=== PATIENT | male | born 1990 | race Caucasian/White ===

== ENCOUNTER 2021-09-21 02:00 | Inpatient (IN) | payer MEDICAID, OTHER ==
[~2021-09-21] VITALS: Ht 177.8 cm; Wt 89.2 kg
[2021-09-21] MEDS ORDERED: LACO200T2 PO (02:19)
[2021-09-21] MEDS ORDERED: IBUP-1773 PO (02:19)
[2021-09-21] MEDS ORDERED: CYCL10TA25 (02:19)
[2021-09-21] MEDS ORDERED: METF-399 PO (02:19)
[2021-09-21] MEDS ORDERED: INSU100I29 SC (02:19)
[2021-09-21] MEDS ORDERED: ACHD5005 (02:19)
[2021-09-21] MEDS ORDERED: INSU100I48 SC (02:19)
[2021-09-21] MEDS ORDERED: LEVE500T6 PO (02:19)
[2021-09-21] MEDS ORDERED: ONDANSETRON 4 MG/2 ML (SDV) Z0FRAN IVP ONE (02:45)
[2021-09-21] MEDS ORDERED: NS IV 1000 ML 1,000 ML IV SCH (02:45)
[2021-09-21 02:54] LABS: BASOPHILS # (AUTO) 0.1 10^3/uL (0.0-0.1); BASOPHILS % (AUTO) 0 % (0-10); EOSINOPHILS % (AUTO) 0 % (0-10); HEMATOCRIT 47 % (40-54); HEMOGLOBIN 15.5 g/dL (13.3-17.7); LYMPHOCYTES % (AUTO) 5 % (12-44); MEAN CORPUSCULAR HEMOGLOBIN 29 pg (25-34); MEAN CORPUSCULAR HGB CONC 33 g/dL (32-36); MEAN CORPUSCULAR VOLUME 88 fL (80-99); MEAN PLATELET VOLUME 9.1 fL (9.0-12.2); MONOCYTES # (AUTO) 2.2 10^3/uL (0.0-1.0); MONOCYTES % (AUTO) 10 % (0-12); NEUTROPHILS # (AUTO) 18.6 10^3/uL (1.8-7.8); NEUTROPHILS % (AUTO) 85 % (42-75); PLATELET COUNT 363 10^3/uL (130-400)
[2021-09-21 02:59] LABS: ALBUMIN 4.8 GM/DL (3.2-4.5); CHLORIDE 103 MMOL/L (98-107); POTASSIUM 5.4 MMOL/L (3.6-5.0); SODIUM 136 MMOL/L (135-145)
[2021-09-21 03:00] LABS: CALCIUM 9.4 MG/DL (8.5-10.1)
[2021-09-21 03:01] LABS: TOTAL PROTEIN 8.7 GM/DL (6.4-8.2)
[2021-09-21 03:03] LABS: BILIRUBIN,TOTAL 0.3 MG/DL (0.1-1.0)
[2021-09-21 03:05] LABS: ALKALINE PHOSPHATASE 108 U/L (40-136); CREATININE SERUM 1.54 MG/DL (0.60-1.30); GFR ESTIMATED 62
[2021-09-21 03:06] LABS: BUN/CREATININE RATIO 12
[2021-09-21 03:08] LABS: ALANINE AMINOTRANSFERASE 23 U/L (0-55)
--- NOTE | 2021-09-21 03:31 | ED General ---
General Chief Complaint: Abdominal/GI Problems Stated Complaint: VOMITING Nursing Triage Note: BROUGHT IN BY [facility] FOR ABDOMINAL PAIN, VOMITTING, FEVER, HEADACHE, INCREASED FREQUENCY OF SEIZURES. Source of Information: Patient Exam Limitations: No Limitations History of Present Illness Date Seen by Provider: Sep 21, 2021 Time Seen by Provider: 03:00 Initial Comments Patient is a 30-year-old male, type I diabetic, history of seizure disorder who presents to the emergency room with a chief complaint of nausea, vomiting, hyperglycemia. Had a seizure earlier today. States he has seizures once every 1 to 2 months. Is on Keppra and Vimpat. Did not take his seizure medications yesterday morning because he did not feel good. Patient states over the last 48 hours he has had some congestion, nausea, decreased appetite. Did not take his insulin today because he has not been eating much. Denies any fevers or chills, mild sore throat with the vomiting. No earache. No runny nose. No known Covid positive contacts. He has his Covid vaccination primary series in spring 2020, no booster. Denies diarrhea, difficulty with urination, wounds or sores. States his last hemoglobin A1c was quite high because he has not been following a good diet. Has fluids running, had 8 of Zofran on arrival, still feels somewhat nauseated. All other review of systems reviewed and negative except as stated. Timing/Duration: 1-2 Days Severity: Moderate Associated Systoms: Headaches (Frontal headache), Loss of Appetite, Malaise, N ausea/Vomiting Allergies and Home Medications Allergies Coded Allergies: No Known Drug Allergies (Unverified , 09/21/21) Patient Home Medication List Home Medication List Reviewed: Yes Cyclobenzaprine HCl (Cyclobenzaprine HCl) 10 Mg Tablet, (Reported) Entered as Reported by: NICKI LAWLER on 09/21/21218 Last Action: New Order Hydrocodone/Acetaminophen (Hydrocodone-Acetamin 5-325 mg) 1 Each Tablet, (Reported) Entered as Reported by: NICKI LAWLER on 09/21/21218 Last Action: New Order Ibuprofen (Ibuprofen) 600 Mg Tablet, (Reported) Entered as Reported by: NICKI LAWLER on 09/21/21218 Last Action: New Order Insulin Detemir (Levemir Flextouch) 100 Unit/1 Ml Insuln.pen, (Reported) Entered as Reported by: NICKI LAWLER on 09/21/21218 Last Action: New Order Insulin Lispro (Insulin Lispro Kwikpen U-100) 100 Unit/1 Ml Insuln.pen, (Reported) Entered as Reported by: NICKI LAWLER on 09/21/21218 Last Action: New Order Lacosamide (Vimpat) 200 Mg Tablet, (Reported) Entered as Reported by: NICKI LAWLER on 09/21/21218 Last Action: New Order Levetiracetam (Levetiracetam) 500 Mg Tablet, (Reported) Entered as Reported by: NICKI LAWLER on 09/21/21218 Last Action: New Order Metformin HCl (Metformin HCl) 1,000 Mg Tablet, (Reported) Entered as Reported by: NICKI LAWLER on 09/21/21218 Last Action: New Order Review of Systems Review of Systems Constitutional: see HPI, malaise EENTM: nose congestion Respiratory: other (Congestion, mild cough) Gastrointestinal: nausea, vomiting Genitourinary: no symptoms reported Musculoskeletal: no symptoms reported Skin: no symptoms reported Psychiatric/Neurological: Headache (From) All Other Systems Reviewed Negative Unless Noted: Yes Past Celyvca-Azvbhs-Avzpmp Hx Patient Social History Tobacco Use?: No Substance use?: No Alcohol Use?: No Pt feels they are or have been: No Immunizations Up To Date First/Initial COVID19 Vaccinat: 12/04 Second COVID19 Vaccination Boby: 12/04 COVID19 Vaccine Supervisor Special Services: MODERNEliezer Past Medical History Surgery/Hospitalization HX: SEIZURES, IDDM, HEADACHES Physical Exam Vital Signs Vital Signs - First Documented 09/21/21 02:03 Temp 36.9 Pulse 117 Resp 16 B/P (MAP) 133/81 (98) Pulse Ox 98 O2 Delivery Room Air Capillary Refill : Less Than 3 Seconds Height, Weight, BMI Height: '" Weight: lbs. oz. kg; 29.00 BMI Method: General Appearance: No Apparent Distress, WD/WN Eyes: Bilateral Eye Normal Inspection, Bilateral Eye PERRL, Bilateral Eye EOMI HEENT: PERRL/EOMI, Other (Dry oral mucosa) Neck: Full Range of Motion, Normal Inspection, Non Tender, Supple Respiratory: Lungs Clear, Normal Breath Sounds, No Accessory Muscle Use, No Respiratory Distress Cardiovascular: Regular Rate, Rhythm (Tachycardic 120), Normal Peripheral Pulses Gastrointestinal: Normal Bowel Sounds, Non Tender, Soft Extremity: Normal Capillary Refill, Normal Inspection, Normal Range of Motion, Non Tender, No Calf Tenderness Neurologic/Psychiatric: Alert, Oriented x3, No Motor/Sensory Deficits, Normal Mood/Affect, welt stitcher II-XII Norm as Tested Skin: Normal Color, Warm/Dry Progress/Results/Core Measures Suspected Sepsis SIRS Temperature: Pulse: 117 Respiratory Rate: 16 Laboratory Tests 09/21/21 02:12: White Blood Count 22.0H Blood Pressure 133 /81 Mean: 98 Laboratory Tests 09/21/21 02:12: Creatinine 1.54H, Platelet Count 363, Total Bilirubin 0.3 Results/Orders Lab Results Laboratory Tests Test 09/21/21 02:12 09/21/21 02:55 09/21/21 03:32 09/21/21 04:16 Range/Units White Blood Count 22.0 H 4.3-11.0 10^3/uL Red Blood Count 5.27 4.30-5.52 10^6/uL Hemoglobin 15.5 13.3-17.7 g/dL Hematocrit 47 40-54 % Mean Corpuscular Volume 88 80-99 fL Mean Corpuscular Hemoglobin 29 25-34 pg Mean Corpuscular Hemoglobin Concent 33 32-36 g/dL Red Cell Distribution Width 12.0 10.0-14.5 % Platelet Count 363 130-400 10^3/uL Mean Platelet Volume 9.1 9.0-12.2 fL Immature Granulocyte % (Auto) 1 % Neutrophils (%) (Auto) 85 H 42-75 % Lymphocytes (%) (Auto) 5 L 12-44 % Monocytes (%) (Auto) 10 0-12 % Eosinophils (%) (Auto) 0 0-10 % Basophils (%) (Auto) 0 0-10 % Neutrophils # (Auto) 18.6 H 1.8-7.8 10^3/uL Lymphocytes # (Auto) 1.0 1.0-4.0 10^3/uL Monocytes # (Auto) 2.2 H 0.0-1.0 10^3/uL Eosinophils # (Auto) 0.0 0.0-0.3 10^3/uL Basophils # (Auto) 0.1 0.0-0.1 10^3/uL Immature Granulocyte # (Auto) 0.1 0.0-0.1 10^3/uL Neutrophils % (Manual) 64 % Lymphocytes % (Manual) 6 % Monocytes % (Manual) 11 % Band Neutrophils 19 % Blood Morphology Comment NORMAL Sodium Level 136 135-145 MMOL/L Potassium Level 5.4 H 3.6-5.0 MMOL/L Chloride Level 103 98-107 MMOL/L Carbon Dioxide Level 7 *L 21-32 MMOL/L Anion Gap 26 H 5-14 MMOL/L Blood Urea Nitrogen 19 H 7-18 MG/DL Creatinine 1.54 H 0.60-1.30 MG/DL Estimat Glomerular Filtration Rate 62 BUN/Creatinine Ratio 12 Glucose Level 448 *H 70-105 MG/DL Calcium Level 9.4 8.5-10.1 MG/DL Corrected Calcium 8.5-10.1 MG/DL Total Bilirubin 0.3 0.1-1.0 MG/DL Aspartate Amino Transf (AST/SGOT) 21 5-34 U/L Alanine Aminotransferase (ALT/SGPT) 23 0-55 U/L Alkaline Phosphatase 108 40-136 U/L Total Protein 8.7 H 6.4-8.2 GM/DL Albumin 4.8 H 3.2-4.5 GM/DL Beta-Hydroxybutyrate (Chem panel) 8.54 H 0.00-0.27 MMOL/L Urine Color YELLOW Urine Clarity CLEAR Urine pH 5.5 5-9 Urine Specific [place] >=1.030 1.016-1.022 Urine Protein 1+ H NEGATIVE Urine Glucose (UA) 2+ H NEGATIVE Urine Ketones 3+ H NEGATIVE Urine Nitrite NEGATIVE NEGATIVE Urine Bilirubin NEGATIVE NEGATIVE Urine Urobilinogen 0.2 < = 1.0 MG/DL Urine Leukocyte Esterase NEGATIVE NEGATIVE Urine RBC (Auto) 2+ H NEGATIVE Urine RBC RARE /HPF Urine WBC NONE /HPF Urine Squamous Epithelial Cells RARE /HPF Urine Crystals NONE /LPF Urine Bacteria NEGATIVE /HPF Urine Casts NONE /LPF Urine Mucus NEGATIVE /LPF Urine Culture Indicated NO Blood Gas Puncture Site LEFT RADIAL Blood Gas Patient Temperature 36.8 Arterial Blood pH 7.08 *L 7.37-7.43 Arterial Blood Partial Pressure CO2 26 L 35-45 MMHG Arterial Blood Partial Pressure O2 69 L 79-93 MMHG Arterial Blood HCO3 7 *L 23-27 MMOL/L Arterial Blood Total CO2 8.2 *L 21.0-31.0 MMOL/L Arterial Blood Oxygen Saturation 91 L 94-100 % Arterial Blood Base Excess -20.8 L -2.5-2.5 MMOL/L Ismael Test YES-POS Blood Gas Ventilator Setting NO Blood Gas Inspired Oxygen ROOM AIR Influenza Type A (RT-PCR) Not Detected Not Detecte Influenza Type B (RT-PCR) Not Detected Not Detecte SARS-CoV-2 RNA (RT-PCR) Detected H Not Detecte My Orders Orders - SKYLAR GRAY MD Ed Iv/Invasive Line Start (09/21/21 02:35) Cbc With Automated Diff (09/21/21 02:35) Comprehensive Metabolic Panel (09/21/21 02:35) Ondansetron Injection (Zofran Injectio (09/21/21 02:45) Ns Iv 1000 Ml (Sodium Chloride 0.9%) (09/21/21 02:45) Manual Differential (09/21/21 02:12) Chest 1 View, Ap/Pa Only (09/21/21 03:27) Ua Culture If Indicated (09/21/21 03:27) Beta Hydroxybutyrate (09/21/21 03:27) Arterial Blood Gas (09/21/21 03:36) Insulin (Regular) Human (Novolin R (Per (09/21/21 06:00) Insulin Regular Drip (Myxredlin 100 Unit (09/21/21 04:00) Covid 19 Inhouse Test (09/21/21 03:55) Influenza A And B By Pcr (09/21/21 03:55) Isolation Central Supply Req (09/21/21 03:55) Insulin (Regular) Human (Novolin R (Per (09/21/21 04:00) 1/2 Ns Iv Solution (0.45% Sodium Chlorid (09/21/21 03:59) Acetaminophen Tablet (Tylenol Tablet) (09/21/21 04:30) Medications Given in ED Current Medications Medications Dose Ordered Sig/Tiffany Route Start Time Stop Time Status Last Admin Dose Admin Ondansetron HCl 8 mg ONCE ONCE IVP 09/21/21 02:45 09/21/21 02:46 DC 09/21/21 02:57 8 MG Vital Signs/I&O 09/21/21 02:03 Temp 36.9 Pulse 117 Resp 16 B/P (MAP) 133/81 (98) Pulse Ox 98 O2 Delivery Room Air Capillary Refill : Less Than 3 Seconds Blood Pressure Mean: 98 Progress Note #1: Time: 03:31 Progress Note Concern for DKA secondary to tachycardia, nausea vomiting, hyperglycemia. Added ABG, beta hydroxybutyric acid level, chest x-ray and urinalysis. Patient looks comfortable at the moment. Normal blood pressure, normal pulse ox. Benign exam other than dry oral mucosa and tachycardia. Progress Note #2: Time: 04:52 Progress Note notified by lab of positive Covid results Critical Care Note Critical Care Start Time: 03:00 Stop Time: 04:30 Total Time (minutes) 30 minutes critical care time in the evaluation and management of this patient with intractable nausea and vomiting, type 1 diabetes, tachycardia elevated blood sugar. Time includes initial evaluation and management with treatment of hyperglycemia with fluid resuscitation, DKA work-up, review and interpretation of medical record, labs and imaging. Discussion with admitting provider. Departure Communication (Admissions) Time/Spoke to Admitting Phy: 04:[address] Torres Impression Primary Impression: Diabetic ketoacidosis Qualified Codes: E10.10 - Type 1 diabetes mellitus with ketoacidosis without coma Additional Impression: COVID-19 Disposition: ADMITTED INPATIENT Condition: Critical Admissions Decision to Admit Reason: Admit from ER (General) Decision to Admit/Date: Sep 21, 2021 Time/Decision to Admit Time: 04:06 SKYLAR GRAY MD Sep 21, 2021 03:31
[2021-09-21 03:34] LABS: CARBON DIOXIDE 7 MMOL/L (21-32); GLUCOSE 448 MG/DL (70-105)
[2021-09-21 03:40] LABS: ABG BASE EXCESS -20.8 MMOL/L (-2.5-2.5); ABG OXYGEN SATURATION 91 % (94-100); ABG PCO2 26 MMHG (35-45); ABG PO2 69 MMHG (79-93)
[2021-09-21 03:41] LABS: ABG PH 7.08 (7.37-7.43)
[2021-09-21 03:41] LABS: BILIRUBIN,URINE NEGATIVE (NEGATIVE); CLARITY,URINE CLEAR; COLOR,URINE YELLOW; GLUCOSE, URINE (UA) 2+ (NEGATIVE); KETONES,URINE 3+ (NEGATIVE); LEUKOCYTE ESTERASE ,URINE NEGATIVE (NEGATIVE); NITRITE,URINE NEGATIVE (NEGATIVE); PH,URINE 5.5 (5-9); PROTEIN,URINE 1+ (NEGATIVE)
[2021-09-21 03:42] LABS: ABG TCO2 8.2 MMOL/L (21.0-31.0); ALLENS TEST YES-POS; INSPIRED O2 ROOM AIR; PATIENT TEMP 36.8; VENTILATOR NO
[2021-09-21 03:48] LABS: BAND NEUTROPHILS 19 %; LYMPHOCYTES % (MANUAL) 6 %; MONOCYTES % (MANUAL) 11 %; NEUTROPHILS % (MANUAL) 64 %
[2021-09-21 03:49] LABS: RBC MORPH NORMAL
[2021-09-21 03:49] LABS: BACTERIA,URINE NEGATIVE /HPF; RBC,URINE RARE /HPF; SQUAMOUS EPITHELIAL CELL,UR RARE /HPF
[2021-09-21] MEDS ORDERED: 1/2 NS IV SOLUTION 1,000 ML IV STA (03:59)
[2021-09-21] MEDS ORDERED: inSUlin (REGULAR) HUMAN 1 UNIT/0.01 ML (CHARGE PER UNIT) IV SCH (04:00)
[2021-09-21] MEDS ORDERED: LORazepam INJ 2 MG/ML (ATIVAN) VIAL IVP STA (04:29)
[2021-09-21] MEDS ORDERED: ACETAMINOPHEN 500 MG TAB (TYLENOL) PO ONE (04:30)
--- NOTE | 2021-09-21 04:52 | Tele-ICU Consult ---
History of Present Illness History of Present Illness Date Seen by Provider: Sep 21, 2021 Time Seen by Provider: 04:51 Date of Admission 30 yo M admitted with Sz this am, known to have Sz disorder, on Kepra did not take today or yesterday also in DKA with glu 448, HCO3 17 Given IV Ativan in ED c/o JEAN BAPTISTE, nausea, vomiting, never been in DKA, no abd pain Has Sz every couple of months, this looked typical Allergies and Home Medications Allergies Coded Allergies: No Known Drug Allergies (Unverified , 09/21/21) Past Medical/Social/Family Hx Patient Social History Tobacco Use?: No Substance use?: No Alcohol Use?: No Pt stated abuse/neglect: No Immunizations Up To Date First/Initial COVID19 Vaccinat: 12/04 Second COVID19 Vaccination Boby: 12/04 Tetanus Booster (TDap): Unknown Current Status Advance Directives: No Communicates: Verbally Primary Language: Togolese Preferred Spoken Language: Togolese Is interpretation needed?: No Implanted or Applied Medical D: None Review of Systems Constitutional: see HPI Focused Exam Height, Weight, BMI Height: '" Weight: lbs. oz. kg; 29.00 BMI Method: Exam Exam Patient acknowledged, consented, and participated in this virtual visit which was conducted using real time audio/video Vital Signs Date Time Temp Pulse Resp B/P (MAP) Pulse Ox O2 Delivery O2 Flow Rate FiO2 09/21/21 02:03 36.9 117 16 133/81 (98) 98 Room Air I & O 09/21/21 07:00 Intake Total 1150 ml Balance 1150 ml Height & Weight Height: '" Weight: lbs. oz. kg; 29.00 BMI Method: General Appearance: No Apparent Distress, WD/WN HEENT: PERRL/EOMI, Other (Dry oral mucosa) Neck: Full Range of Motion, Normal Inspection, Non Tender, Supple Respiratory: Lungs Clear, Normal Breath Sounds, No Accessory Muscle Use, No Respiratory Distress Cardiovascular: Regular Rate, Rhythm (Tachycardic 120), Normal Peripheral Pulses, Tachycardia Capillary Refill: Less Than 3 Seconds Gastrointestinal: normal bowel sounds, non tender Extremity: Normal Capillary Refill, Normal Inspection, Normal Range of Motion, Non Tender, No Calf Tenderness Neurologic/Psychiatric: Alert, Oriented x3, No Motor/Sensory Deficits, Normal Mood/Affect, olive grower II-XII Norm as Tested Skin: Normal Color, Warm/Dry Results Lab Laboratory Tests 09/21/21 02:12 Assessment/Plan Assessment/Plan continue Rx of DKA, Sz meds Critical Care: Critically Ill Patient Time spent with patient (mins): 25 STEPHANIE DESIR MD Sep 21, 2021 04:52
[2021-09-21] MEDS ORDERED: D5 1/2 NS 1000 ML IV SOLUTION 1,000 ML IV SCH (05:15)
[2021-09-21] MEDS ORDERED: 1/2 NS IV SOLUTION 1,000 ML IV SCH (05:15)
[2021-09-21] MEDS ORDERED: ONDANSETRON 4 MG/2 ML (SDV) Z0FRAN IV PRN (05:15)
[2021-09-21] MEDS ORDERED: POTASSIUM CL 10MEQ/50ML IVPB 50 ML IV SCH (05:15)
[2021-09-21] MEDS ORDERED: inSUlin (REGULAR) HUMAN 1 UNIT/0.01 ML (CHARGE PER UNIT) SC SCH (06:00)
[2021-09-21 06:03] VITALS: BP 137/66
[2021-09-21] MEDS: 1/2 NS IV SOLUTION 1,000 ML IV SCH ×3 (06:11→09:38)
--- NOTE | 2021-09-21 06:33 | Diagnostic Imaging Report ---
CHEST 1 VIEW, AP/PA ONLY Indication: Nausea vomiting and hyperglycemia Comparison: None available. Findings: No focal airspace disease in the visualized lungs. Please note that the posterior lower lobes are poorly evaluated by portable radiography. No pleural effusion or pneumothorax. Normal cardiomediastinal silhouette. Impression: 1. No acute cardiopulmonary process by portable radiography. Dictated by: Dictated on workstation # [id number]
[2021-09-21 06:38] LABS: HEMATOCRIT 43 % (40-54); HEMOGLOBIN 14.6 g/dL (13.3-17.7); MEAN CORPUSCULAR HEMOGLOBIN 30 pg (25-34); MEAN CORPUSCULAR HGB CONC 34 g/dL (32-36); MEAN CORPUSCULAR VOLUME 87 fL (80-99); MEAN PLATELET VOLUME 8.7 fL (9.0-12.2); PLATELET COUNT 351 10^3/uL (130-400); WHITE BLOOD COUNT 19.1 10^3/uL (4.3-11.0)
[2021-09-21 07:03] LABS: POTASSIUM 5.3 MMOL/L (3.6-5.0)
[2021-09-21 07:04] LABS: CALCIUM 8.8 MG/DL (8.5-10.1)
[2021-09-21 07:09] LABS: CREATININE SERUM 1.29 MG/DL (0.60-1.30)
--- NOTE | 2021-09-21 09:24 | History & Physical-Hospitalist ---
History of Present Illness HPI/Chief Complaint Patient is a 30-year-old male, type I diabetic, history of seizure disorder who presents to the emergency room with a chief complaint of nausea, vomiting, hyperglycemia. Had a seizure earlier today. States he has seizures once every 1 to 2 months. Is on Keppra and Vimpat. Did not take his seizure medications yesterday morning because he did not feel good. Patient states over the last 48 hours he has had some congestion, nausea, decreased appetite. Did not take his insulin today because he has not been eating much. Denies any fevers or chills, mild sore throat with the vomiting. No earache. No runny nose. No known Covid positive contacts. He has his Covid vaccination primary series in spring 2020, no booster. Denies diarrhea, difficulty with urination, wounds or sores. States his last hemoglobin A1c was quite high because he has not been following a good diet. Has fluids running, had 8 of Zofran on arrival, still feels somewhat nauseated. All other review of systems reviewed and negative except as stated. Timing/Duration: 1-2 Days Severity: Moderate Associated Systoms: Headaches (Frontal headache), Loss of Appetite, Malaise, Nausea/Vomiting Patient reports feeling better wanting some liquids. He has had no further vomiting reports some low-grade body aches and pains and a mild headache without reported photophobia. Well he said no known Covid positive contacts he works at [employer] where there is significant exposure. He did test positive for COVID via PCR as I recall. Date Seen 09/21/21 Time Seen by a Provider: 07:00 Attending Physician Chapin Daigle MD PCP Stephanie Bhatia Aprn Referring Physician Date of Admission Sep 21, 2021 at 04:27 Home Medications & Allergies Home Medications Reviewed patient Home Medication Reconciliation performed by pharmacy medication reconciliations coordinate measuring machine technician and/or nursing. Patients Allergies have been reviewed. Allergies Allergies Coded Allergies No Known Drug Allergies (Unverified09/21/21) Past Dvpyeki-Wkcxle-Toorqf Hx Patient Social History Tobacco Use?: No Smoking Status: Never a Smoker Substance use?: No Alcohol Use?: No Pt feels they are or have been: No Immunizations Up To Date First/Initial COVID19 Vaccinat: 12/04 Second COVID19 Vaccination Boby: 12/04 Tetanus Booster (TDap): Unknown Current Status Advance Directives: No Communicates: Verbally Primary Language: Maltese Preferred Spoken Language: Maltese Is interpretation needed?: No Implanted or Applied Medical D: None Review of Systems Constitutional: see HPI Physical Exam Physical Exam Vital Signs Vital Signs - First Documented 09/21/21 02:03 Temp 36.9 Pulse 117 Resp 16 B/P (MAP) 133/81 (98) Pulse Ox 98 O2 Delivery Room Air Capillary Refill : Less Than 3 Seconds Height, Weight, BMI Height: '" Weight: lbs. oz. kg; 27.99 BMI Method: General Appearance: Anxious, Mild Distress Neck: Non Tender, Supple Respiratory: Chest Non Tender, Lungs Clear, Normal Breath Sounds, No Accessory Muscle Use, No Respiratory Distress Cardiovascular: Regular Rate, Rhythm, No Edema, No Gallop, No JVD, No Murmur, Normal Peripheral Pulses Gastrointestinal: No Organomegaly, No Pulsatile Mass, Non Tender, Soft, Other (Bowel sounds present but hypoactive no distention) Extremity: Normal Capillary Refill, Normal Inspection, Normal Range of Motion, Non Tender, No Calf Tenderness, No Pedal Edema Neurologic/Psychiatric: Alert, Oriented x3 Results Results/Procedures Labs Laboratory Tests 09/21/21 02:12 09/21/21 06:25 Patient resulted labs reviewed. Assessment/Plan Admission Diagnosis 1. Diabetic DKA likely brought on by COVID infection with no evidence for pneumonia. Patient responding to insulin drip will advance to clear liquids and continue to monitor. Admission Status: Inpatient Order (span 2 midnights) Reason for Inpatient Admission: See admission diagnosis CHAPIN DAIGLE MD Sep 21, 2021 09:24
[2021-09-21] MEDS ORDERED: ACETAMINOPHEN 325 MG TABLET PO PRN (10:15)
[2021-09-21] MEDS ORDERED: PATIENT MAY USE OWN MED,SINGLE MED PO SCH (10:15)
[2021-09-21 11:12] LABS: CALCIUM 8.7 MG/DL (8.5-10.1)
[2021-09-21 11:16] LABS: CREATININE SERUM 1.19 MG/DL (0.60-1.30)
[2021-09-21] MEDS: ACETAMINOPHEN 500 MG TAB (TYLENOL) PO PRN ×2 (13:24→21:07)
[2021-09-21] MEDS ORDERED: inSUlin ASPART (NovoLOG) 1 UNIT/0.01 ML (CHARGE PER UNIT) SC ONE (14:00)
[2021-09-21] MEDS: inSUlin ASPART (NovoLOG) 1 UNIT/0.01 ML (CHARGE PER UNIT) SC SCH (16:08)
[2021-09-21] MEDS: inSUlin ASPART (NovoLOG) 1 UNIT/0.01 ML (CHARGE PER UNIT) SQ SCH ×2 (16:57→21:04)
[2021-09-22 04:10] LABS: BASOPHILS % (AUTO) 0 % (0-10); EOSINOPHILS % (AUTO) 0 % (0-10); HEMATOCRIT 38 % (40-54); HEMOGLOBIN 13.1 g/dL (13.3-17.7); LYMPHOCYTES # (AUTO) 1.8 10^3/uL (1.0-4.0); LYMPHOCYTES % (AUTO) 17 % (12-44); MEAN CORPUSCULAR HEMOGLOBIN 30 pg (25-34); MEAN CORPUSCULAR HGB CONC 35 g/dL (32-36); MEAN CORPUSCULAR VOLUME 86 fL (80-99); MEAN PLATELET VOLUME 8.7 fL (9.0-12.2); MONOCYTES # (AUTO) 0.8 10^3/uL (0.0-1.0); MONOCYTES % (AUTO) 8 % (0-12); NEUTROPHILS # (AUTO) 7.8 10^3/uL (1.8-7.8); NEUTROPHILS % (AUTO) 75 % (42-75); PLATELET COUNT 287 10^3/uL (130-400); WHITE BLOOD COUNT 10.4 10^3/uL (4.3-11.0)
[2021-09-22 04:20] LABS: POTASSIUM 4.7 MMOL/L (3.6-5.0)
[2021-09-22 04:21] LABS: CALCIUM 8.9 MG/DL (8.5-10.1)
[2021-09-22 04:23] LABS: TOTAL PROTEIN 7.1 GM/DL (6.4-8.2)
[2021-09-22 04:24] LABS: BILIRUBIN,TOTAL 0.4 MG/DL (0.1-1.0)
[2021-09-22 04:26] LABS: CREATININE SERUM 1.15 MG/DL (0.60-1.30); PHOSPHORUS 2.7 MG/DL (2.3-4.7)
[2021-09-22 04:29] LABS: MAGNESIUM 1.8 MG/DL (1.6-2.4)
[2021-09-22] MEDS: inSUlin ASPART (NovoLOG) 1 UNIT/0.01 ML (CHARGE PER UNIT) SQ SCH ×4 (06:45→20:53)
[2021-09-22] MEDS: inSUlin ASPART (NovoLOG) 1 UNIT/0.01 ML (CHARGE PER UNIT) SC SCH ×3 (06:45→18:00)
--- NOTE | 2021-09-22 11:35 | Tele-ICU Progress Note ---
Subjective Date Seen by a Provider: Sep 22, 2021 Time Seen by a Provider: 11:35 Sepsis Event Evaluation Height, Weight, BMI Height: '" Weight: lbs. oz. kg; 27.99 BMI Method: Exam Exam Patient acknowledged, consented, and participated in this virtual visit which was conducted using real time audio/video Vital Signs Date Time Temp Pulse Resp B/P (MAP) Pulse Ox O2 Delivery O2 Flow Rate FiO2 09/22/21 11:00 89 14 111/62 96 Room Air 09/22/21 10:00 96 15 116/70 96 Room Air 09/22/21 09:00 113 21 122/91 97 Room Air 09/22/21 08:00 37.1 09/22/21 08:00 98 Room Air 09/22/21 08:00 95 37 136/77 97 Room Air 09/22/21 07:00 100 09/22/21 07:00 97 17 104/55 97 Room Air 09/22/21 06:00 93 127/79 97 Room Air 09/22/21 05:00 101 121/67 97 Room Air 09/22/21 04:00 98 Room Air 09/22/21 04:00 36.9 103 12 126/77 97 Room Air 09/22/21 03:00 103 12 107/84 97 Room Air 09/22/21 02:00 103 12 111/71 97 Room Air 09/22/21 01:00 95 09/22/21 01:00 100 12 113/70 97 Room Air 09/22/21 00:00 85 15 126/66 97 Room Air 09/22/21 00:00 36.8 09/21/21 23:59 98 Room Air 09/21/21 23:00 103 12 92/51 97 Room Air 09/21/21 22:00 101 18 108/51 97 Room Air 09/21/21 21:00 105 12 120/61 98 Room Air 09/21/21 20:00 98 Room Air 09/21/21 20:00 106 19 109/57 97 Room Air 09/21/21 19:31 37.1 09/21/21 19:00 107 14 113/74 97 Room Air 09/21/21 19:00 107 09/21/21 18:00 93 15 130/66 100 Room Air 09/21/21 17:17 99 38 108/72 98 Room Air 09/21/21 16:00 108 16 132/66 100 Room Air 09/21/21 15:58 36.8 09/21/21 15:00 109 15 121/69 97 Room Air 09/21/21 14:00 112 35 128/70 97 Room Air 09/21/21 13:00 105 09/21/21 13:00 106 23 128/59 98 Room Air 09/21/21 12:11 36.4 09/21/21 12:00 96 9 101/60 97 Room Air I & O 09/22/21 07:00 Intake Total 500 ml Output Total 1525 ml Balance -1025 ml Height & Weight Height: '" Weight: lbs. oz. kg; 27.99 BMI Method: General Appearance: Anxious, Mild Distress HEENT: PERRL/EOMI, Other (Dry oral mucosa) Neck: Non Tender, Supple Respiratory: Chest Non Tender, Lungs Clear, Normal Breath Sounds, No Accessory Muscle Use, No Respiratory Distress Cardiovascular: Regular Rate, Rhythm, No Edema, No Gallop, No JVD, No Murmur, Normal Peripheral Pulses Capillary Refill: Less Than 3 Seconds Gastrointestinal: normal bowel sounds, non tender Extremity: Normal Capillary Refill, Normal Inspection, Normal Range of Motion, Non Tender, No Calf Tenderness, No Pedal Edema Neurologic/Psychiatric: Alert, Oriented x3 Skin: Normal Color, Warm/Dry Results Lab Laboratory Tests 09/21/21 02:12 09/21/21 06:25 09/21/21 10:46 09/22/21 03:32 Assessment/Plan Assessment/Plan (Tele-ICU Physician , Progress Note ) Available chart/ vitals / labs / Images reviewed Video assessment done using teleICU camera, rest of exam as per RN Discussed with RN , EXAM PER RN Events overnight : Afebrile FiO2 - ra I/O = Drips: Pressors: , hemodynamically stable Consultants: A/P DKA -precipitated by viral infection *Insulin drip c was off since yesterday , continue to monitor for resolution of acidosis, AG - long acitng insulin and ISS initiated *Tx Gastroparesis Covid + - no indications for steroids h/o Sx dz cont keppra Lines : periph (Central Line Necessity Reviewed) Desir: void OG: Nutrition: Analgesia: Anxiety/ delirium VTE Prophylaxis: AMBULATE Stress Ulcer Prophylaxis: PO Glycemic Control: Plans in collaboration with bedside consultants and IM MDs. Discussed with RN to reach out if any questions or concerns A total of _ minutes of critical care time was devoted to this patient today, required to treat and/or prevent further deterioration of critical care condition ( as above) . MICHELLE MERCADO MD Sep 22, 2021 11:35
[2021-09-22 13:49] LABS: POTASSIUM 4.1 MMOL/L (3.6-5.0)
[2021-09-22 13:50] LABS: CALCIUM 9.1 MG/DL (8.5-10.1)
[2021-09-22 13:55] LABS: CREATININE SERUM 1.03 MG/DL (0.60-1.30)
--- NOTE | 2021-09-22 16:54 | Progress Note ---
Subjective Subjective/Events-last exam Patient states that he is feeling much better. Tolerated dinner and breakfast w/o any pain or N/V. Review of Systems General: Malaise Pulmonary: No Dyspnea, No Cough Cardiovascular: No: Chest Pain, Palpitations, Edema Gastrointestinal: No: Nausea, Vomiting, Abdominal Pain, Diarrhea, Constipation Genitourinary: Frequency Objective Exam Last Set of Vital Signs Vital Signs Date Time Temp Pulse Resp B/P (MAP) Pulse Ox O2 Delivery O2 Flow Rate FiO2 09/22/21 16:00 98 14 135/86 98 Room Air 09/22/21 15:26 37.1 Capillary Refill : Less Than 3 Seconds I&O Intake and Output 09/22/21 00:00 Intake Total 1650 ml Output Total 1525 ml Balance 125 ml Intake Oral 500 ml IV Total 1150 ml Output Urine Total 1525 ml Daily Weight Change No General: Alert, Oriented X3, No Acute Distress Lungs: Clear to Auscultation, Normal Air Movement Heart: Regular Rate, No Murmurs Abdomen: Normal Bowel Sounds, Soft, Other (mild epigastric pain with palpation) Extremities: No Edema, No Tenderness/Swelling Skin: No Rashes Neuro: Normal Speech, Sensation Intact, Cranial Nerves 3-12 NL Results/Procedures Lab Laboratory Tests 09/21/21 20:53: Glucometer 176H 09/22/21 03:32: White Blood Count 10.4, Red Blood Count 4.40, Hemoglobin 13.1L, Hematocrit 38L, Mean Corpuscular Volume 86, Mean Corpuscular Hemoglobin 30, Mean Corpuscular Hemoglobin Concent 35, Red Cell Distribution Width 12.3, Platelet Count 287, Mean Platelet Volume 8.7L, Immature Granulocyte % (Auto) 0, Neutrophils (%) (A uto) 75, Lymphocytes (%) (Auto) 17, Monocytes (%) (Auto) 8, Eosinophils (%) (Auto) 0, Basophils (%) (Auto) 0, Neutrophils # (Auto) 7.8, Lymphocytes # (Auto) 1.8, Monocytes # (Auto) 0.8, Eosinophils # (Auto) 0.0, Basophils # (Auto) 0.0, Immature Granulocyte # (Auto) 0.0, Sodium Level 135, Potassium Level 4.7, Chloride Level 106, Carbon Dioxide Level 12L, Anion Gap 17H, Blood Urea Nitrogen 11, Creatinine 1.15, Estimat Glomerular Filtration Rate 88, BUN/Creatinine Ratio 10, Glucose Level 208H, Calcium Level 8.9, Corrected Calcium 8.9, Phosphorus Level 2.7, Magnesium Level 1.8, Total Bilirubin 0.4, Aspartate Amino Transf (AST/SGOT) 16, Alanine Aminotransferase (ALT/SGPT) 14, Alkaline Phosphatase 75, Total Protein 7.1, Albumin 4.0, Beta-Hydroxybutyrate (Chem panel) 4.11H 09/22/21 12:09: Glucometer 100 09/22/21 13:35: Sodium Level 136, Potassium Level 4.1, Chloride Level 106, Carbon Dioxide Level 15L, Anion Gap 15H, Blood Urea Nitrogen 10, Creatinine 1.03, Estimat Glomerular Filtration Rate 100, BUN/Creatinine Ratio 10, Glucose Level 110H, Calcium Level 9.1 09/22/21 15:21: Glucometer 155H Assessment/Plan Assessment/Plan (1) Diabetic ketoacidosis Status: Acute Assessment & Plan: 09/19: Transitioned to subcutaneous insulin, BMP in AM Qualifiers: Qualified Codes: E10.10 - Type 1 diabetes mellitus with ketoacidosis without coma (2) COVID-19 Status: Acute AMARA MAURICIO MD Sep 22, 2021 16:54
[2021-09-23] MEDS: inSUlin ASPART (NovoLOG) 1 UNIT/0.01 ML (CHARGE PER UNIT) SQ SCH ×2 (05:13→13:06)
[2021-09-23 06:01] LABS: BASOPHILS % (AUTO) 0 % (0-10); EOSINOPHILS % (AUTO) 1 % (0-10); HEMATOCRIT 38 % (40-54); HEMOGLOBIN 13.2 g/dL (13.3-17.7); LYMPHOCYTES # (AUTO) 1.5 10^3/uL (1.0-4.0); LYMPHOCYTES % (AUTO) 27 % (12-44); MEAN CORPUSCULAR HEMOGLOBIN 29 pg (25-34); MEAN CORPUSCULAR HGB CONC 35 g/dL (32-36); MEAN CORPUSCULAR VOLUME 84 fL (80-99); MEAN PLATELET VOLUME 8.6 fL (9.0-12.2); MONOCYTES # (AUTO) 0.6 10^3/uL (0.0-1.0); MONOCYTES % (AUTO) 10 % (0-12); NEUTROPHILS # (AUTO) 3.5 10^3/uL (1.8-7.8); NEUTROPHILS % (AUTO) 62 % (42-75); PLATELET COUNT 266 10^3/uL (130-400); WHITE BLOOD COUNT 5.6 10^3/uL (4.3-11.0)
[2021-09-23 06:17] LABS: ALBUMIN 3.9 GM/DL (3.2-4.5); POTASSIUM 3.6 MMOL/L (3.6-5.0)
[2021-09-23 06:18] LABS: CALCIUM 8.8 MG/DL (8.5-10.1)
[2021-09-23 06:19] LABS: TOTAL PROTEIN 7.1 GM/DL (6.4-8.2)
[2021-09-23 06:21] LABS: BILIRUBIN,TOTAL 0.6 MG/DL (0.1-1.0)
[2021-09-23 06:22] LABS: PHOSPHORUS 3.2 MG/DL (2.3-4.7)
[2021-09-23 06:23] LABS: CREATININE SERUM 0.93 MG/DL (0.60-1.30)
[2021-09-23 06:25] LABS: MAGNESIUM 1.8 MG/DL (1.6-2.4)
[2021-09-23] MEDS: inSUlin ASPART (NovoLOG) 1 UNIT/0.01 ML (CHARGE PER UNIT) SC SCH ×2 (08:36→13:07)
[2021-09-23] MEDS ORDERED: MULT-1136 PO (11:32)
[2021-09-23] MEDS ORDERED: LISI20TA26 PO (11:33)
--- NOTE | 2021-09-23 14:04 | Discharge Summary ---
Diagnosis/Chief Complaint Date of Admission Sep 22, 2021 at 16:15 Date of Discharge Discharge Diagnosis Problems/Diagnosis: (1) Diabetic ketoacidosis Assessment & Plan: 09/19: Transitioned to subcutaneous insulin, BMP in AM Qualifiers: Qualified Codes: E10.10 - Type 1 diabetes mellitus with ketoacidosis without coma Status: Acute (2) COVID-19 Status: Acute Discharge Summary-Simple/Stand Consultations Discharge Physical Examination Allergies: Coded Allergies: No Known Drug Allergies (Unverified , 09/21/21) Vitals & I&Os Vital Sign - Last 12Hours Date Time Temp Pulse Resp B/P (MAP) Pulse Ox O2 Delivery O2 Flow Rate FiO2 09/23/21 12:50 36.6 84 18 136/75 97 Room Air Intake and Output 09/23/21 00:00 Intake Total 850 ml Balance 850 ml Hospital Course See final discharge diagnosis. Discharge Instructions to patient/family Please see electronic discharge instructions given to patient. Discharge Medications Reviewed and agree with Discharge Medication list on patient's Discharge Instruction sheet AMARA MAURICIO MD Sep 23, 2021 14:04
--- NOTE | 2021-09-23 14:08 | Discharge Summary ---
Discharge [facility] Reconcile Patient Problems Problems Reviewed?: Yes Discharge Medications New, Converted or Re-Newed RX: Other (No new meds) Continued Medications: Insulin Detemir (Levemir Flextouch) 100 Unit/1 Ml Insuln.pen 30 UNITS SC HS, UNITS Insulin Lispro (Insulin Lispro Kwikpen U-100) 100 Unit/1 Ml Insuln.pen 5 UNITS SC AC, UNITS Lacosamide (Vimpat) 200 Mg Tablet 200 MG PO BID, TAB Levetiracetam (Levetiracetam) 500 Mg Tablet 500 MG PO BID, TAB Lisinopril (Lisinopril) 20 Mg Tablet 20 MG PO DAILY, TAB Metformin HCl (Metformin HCl) 1,000 Mg Tablet 1000 MG PO BID, TAB Multivitamin (Multivitamin) 1 Each Tablet 1 EACH PO DAILY, TAB Discontinued Medications: Ibuprofen (Ibuprofen) 600 Mg Tablet 600 MG PO BID PRN for PAIN-MILD (1-4), TAB Patient Instructions Goal/Follow Up Appt: f.u with PCP 1 week Activity & Diet Discharge Diet: ADA Diet Activity as Tolerated: Yes AMARA MAURICIO MD Sep 23, 2021 14:08
[2021-09-23 16:00] VITALS: BP 136/75
== END 2021-09-23 16:10 | disposition home or self-care (01) | DRG 177 ==
LOC: ER 02:07 → ICU 04:27 → OBSVTOIN 09-22 16:15 → 4TH 09-23
PROVIDERS: ADMIT Internal Medicine; ATTEND Family Medicine
PROC: 8E0ZXY6 Isolation (ICD-10-PCS; principal; 2021-09-21)
DX: U07.1 COVID-19 (principal); E10.10 Type 1 diabetes mellitus with ketoacidosis without coma; G40.909 Epilepsy, unspecified, not intractable, without status epilepticus; Z79.4 Long term (current) use of insulin; Z79.84 Long term (current) use of oral hypoglycemic drugs
CPT/HCPCS: 36415; 71045; 80048; 80053; 81000; 82010; 82805; 82947; 83036; 83735; 84100; 85007; 85025; 85027; 87636; 99291; G0378

== ENCOUNTER 2021-11-05 11:09 | Emergency (ER) | payer MEDICAID ==
[~2021-11-05 11:09] MED LIST: ACHD5005; CYCL10TA25; IBUP-1773 PO; INSU100I29 SC; INSU100I48 SC; LACO200T2 PO; LEVE500T6 PO; LISI20TA26 PO; METF-399 PO; MULT-1136 PO
[2021-11-05] MEDS ORDERED: LACTATED RINGERS 1,000 ML IV SCH (11:30)
[2021-11-05 11:32] LABS: BASOPHILS % (AUTO) 1 % (0-10); EOSINOPHILS # (AUTO) 0.2 10^3/uL (0.0-0.3); EOSINOPHILS % (AUTO) 4 % (0-10); HEMATOCRIT 42 % (40-54); HEMOGLOBIN 14.4 g/dL (13.3-17.7); LYMPHOCYTES # (AUTO) 1.2 10^3/uL (1.0-4.0); LYMPHOCYTES % (AUTO) 26 % (12-44); MEAN CORPUSCULAR HEMOGLOBIN 29 pg (25-34); MEAN CORPUSCULAR HGB CONC 34 g/dL (32-36); MEAN CORPUSCULAR VOLUME 85 fL (80-99); MEAN PLATELET VOLUME 8.8 fL (9.0-12.2); MONOCYTES # (AUTO) 0.6 10^3/uL (0.0-1.0); MONOCYTES % (AUTO) 12 % (0-12); NEUTROPHILS # (AUTO) 2.8 10^3/uL (1.8-7.8); NEUTROPHILS % (AUTO) 58 % (42-75); PLATELET COUNT 310 10^3/uL (130-400); WHITE BLOOD COUNT 4.8 10^3/uL (4.3-11.0)
--- NOTE | 2021-11-05 11:35 | ED Neurological Problem ---
General Chief Complaint: Neurological Problems Stated Complaint: SEIZURE Nursing Triage Note: PT TO EMS BY [facility] WITH C/O SEIZURE WHILE AT WORK AT [employer]. PTS BLOOD SUGAR IS ALSO JAVIER 400 WHEN CHECKED BY EMS. PT AWAKE, A/OX4 AT ARRIVAL Source: patient Exam Limitations: no limitations History of Present Illness Date Seen by Provider: Nov 05, 2021 Time Seen by Provider: 11:32 Initial Comments 31-year-old male with history of cerebral palsy, insulin-dependent diabetes, hypertension, seizure disorder presents to ER with reports of having had a seizure while at work at [employer]. He states that he has a seizure disorder and has a seizure about once a month despite his Keppra and Vimpat. His last dose of those was last night. He was noted to be hyperglycemic at around 400 by EMS. He had not taken his Metformin or insulin this morning. He takes 30 units of long-acting insulin at bedtime and 5 units of rapid acting with meals. He also takes Metformin. Has a hematoma to left forehead from hitting the floor after the seizure. Timing/Duration: 1 hour Severity: moderate Allergies and Home Medications Allergies Coded Allergies: No Known Drug Allergies (Unverified , 09/21/21) Patient Home Medication List Home Medication List Reviewed: Yes Insulin Detemir (Levemir Flextouch) 100 Unit/1 Ml Insuln.pen, 30 UNITS SC HS, (Reported) Entered as Reported by: NICKI LAWLER on 09/21/21218 Insulin Lispro (Insulin Lispro Kwikpen U-100) 100 Unit/1 Ml Insuln.pen, 5 UNITS SC AC, (Reported) Entered as Reported by: NICKI LAWLER on 09/21/21218 Lacosamide (Vimpat) 200 Mg Tablet, 200 MG PO BID, (Reported) Entered as Reported by: NICKI LAWLER on 09/21/21218 Levetiracetam (Levetiracetam) 500 Mg Tablet, 500 MG PO BID, (Reported) Entered as Reported by: NICKI LAWLER on 09/21/21218 Lisinopril (Lisinopril) 20 Mg Tablet, 20 MG PO DAILY, (Reported) Entered as Reported by: MINH GILL on 09/23/21 1133 Metformin HCl (Metformin HCl) 1,000 Mg Tablet, 1,000 MG PO BID, (Reported) Entered as Reported by: NICKI LAWLER on 09/21/21 0219 Multivitamin (Multivitamin) 1 Each Tablet, 1 EACH PO DAILY, (Reported) Entered as Reported by: MINH GILL on 09/23/21 1132 Review of Systems Review of Systems Constitutional: see HPI Eyes: No Symptoms Reported Ears, Nose, Mouth, Throat: no symptoms reported Respiratory: no symptoms reported Cardiovascular: no symptoms reported Genitourinary: no symptoms reported Musculoskeletal: no symptoms reported Skin: no symptoms reported Psychiatric/Neurological: See HPI, Other Endocrine: No Symptoms Reported Hematologic/Lymphatic: No Symptoms Reported Past Uuljwmo-Hxpbof-Adevnf Hx Patient Social History Tobacco Use?: No Use of E-Cig and/or Vaping dev: No Substance use?: No Alcohol Use?: No Pt feels they are or have been: No Immunizations Up To Date First/Initial COVID19 Vaccinat: 12/04 Second COVID19 Vaccination Boby: 01/03 COVID19 Vaccine Accounting Office Manager: MODERNEliezer Past Medical History Surgery/Hospitalization HX: SEIZURES, IDDM, HEADACHES Physical Exam Vital Signs Vital Signs - First Documented 11/05/21 11:14 Temp 36.0 Pulse 101 Resp 20 B/P (MAP) 140/87 (104) Capillary Refill : Height, Weight, BMI Height: '" Weight: lbs. oz. kg; 27.99 BMI Method: General Appearance: WD/WN, no apparent distress, other (Alert and oriented GCS 15 very pleasant. There is a hematoma to the left forehead without open wound or broken skin.) HEENT: PERRL/EOMI, normal ENT inspection, TMs normal Neck: non-tender, full range of motion Respiratory: normal breath sounds, no respiratory distress, no accessory muscle use Cardiovascular: regular rate, rhythm, no murmur Gastrointestinal: normal bowel sounds, non tender, soft Extremities: normal range of motion, non-tender Neurologic/Psychiatric: alert, normal mood/affect, oriented x 3 Crainal Nerves: normal hearing, normal speech, PERRL Skin: normal color, warm/dry left arm atrophy Progress/Results/Core Measures Results/Orders Lab Results Laboratory Tests Test 11/05/21 11:20 Range/Units White Blood Count 4.8 4.3-11.0 10^3/uL Red Blood Count 4.91 4.30-5.52 10^6/uL Hemoglobin 14.4 13.3-17.7 g/dL Hematocrit 42 40-54 % Mean Corpuscular Volume 85 80-99 fL Mean Corpuscular Hemoglobin 29 25-34 pg Mean Corpuscular Hemoglobin Concent 34 32-36 g/dL Red Cell Distribution Width 12.6 10.0-14.5 % Platelet Count 310 130-400 10^3/uL Mean Platelet Volume 8.8 L 9.0-12.2 fL Immature Granulocyte % (Auto) 0 % Neutrophils (%) (Auto) 58 42-75 % Lymphocytes (%) (Auto) 26 12-44 % Monocytes (%) (Auto) 12 0-12 % Eosinophils (%) (Auto) 4 0-10 % Basophils (%) (Auto) 1 0-10 % Neutrophils # (Auto) 2.8 1.8-7.8 10^3/uL Lymphocytes # (Auto) 1.2 1.0-4.0 10^3/uL Monocytes # (Auto) 0.6 0.0-1.0 10^3/uL Eosinophils # (Auto) 0.2 0.0-0.3 10^3/uL Basophils # (Auto) 0.0 0.0-0.1 10^3/uL Immature Granulocyte # (Auto) 0.0 0.0-0.1 10^3/uL Sodium Level 136 135-145 MMOL/L Potassium Level 4.5 3.6-5.0 MMOL/L Chloride Level 101 98-107 MMOL/L Carbon Dioxide Level 24 21-32 MMOL/L Anion Gap 11 5-14 MMOL/L Blood Urea Nitrogen 12 7-18 MG/DL Creatinine 0.96 0.60-1.30 MG/DL Estimat Glomerular Filtration Rate 108 BUN/Creatinine Ratio 13 Glucose Level 365 H 70-105 MG/DL Calcium Level 9.5 8.5-10.1 MG/DL Corrected Calcium 9.3 8.5-10.1 MG/DL Total Bilirubin 0.9 0.1-1.0 MG/DL Aspartate Amino Transf (AST/SGOT) 14 5-34 U/L Alanine Aminotransferase (ALT/SGPT) 20 0-55 U/L Alkaline Phosphatase 93 40-136 U/L Total Protein 7.5 6.4-8.2 GM/DL Albumin 4.3 3.2-4.5 GM/DL Beta-Hydroxybutyrate (Chem panel) 0.95 H 0.00-0.27 MMOL/L My Orders Orders - ESTHER ALDRIDGE APRN Cbc With Automated Diff (11/05/21 11:25) Comprehensive Metabolic Panel (11/05/21 11:25) Beta Hydroxybutyrate (11/05/21 11:25) Ed Iv/Invasive Line Start (11/05/21 11:25) Ua Culture If Indicated (11/05/21 11:25) Ct Head/Cervical Spine Wo (11/05/21 11:25) Lactated Ringers (Lr 1000 Ml Iv Solution (11/05/21 11:30) Insulin (Regular) Human (Novolin R (Per (11/05/21 12:00) Vital Signs/I&O 11/05/21 11:14 Temp 36.0 Pulse 101 Resp 20 B/P (MAP) 140/87 (104) Blood Pressure Mean: 104 Departure Impression Primary Impression: Seizure disorder Additional Impression: Hyperglycemia Disposition: 01 HOME, SELF-CARE Condition: Stable Departure-Patient Inst. Decision time for Depature: 11:58 Ref[facility]: [facility] [place] (PCP) Primary Care Physician ARTHUR ALCOCER APRN (Family) Primary Care Physician Patient Instructions: Seizures, Adult ED, High Blood Sugar, Adult ED Add. Discharge Instructions: 1. As you know, no driving for 6 months after seizure. Return to ER for any concerns. Follow-up with your doctor next week. All discharge instructions reviewed with patient and/or family. Voiced under standing. ESTHER ALDRIDGE APRN Nov 05, 2021 11:35
[2021-11-05 11:42] LABS: ALBUMIN 4.3 GM/DL (3.2-4.5); POTASSIUM 4.5 MMOL/L (3.6-5.0)
[2021-11-05 11:43] LABS: CALCIUM 9.5 MG/DL (8.5-10.1)
[2021-11-05 11:45] LABS: TOTAL PROTEIN 7.5 GM/DL (6.4-8.2)
[2021-11-05 11:47] LABS: BILIRUBIN,TOTAL 0.9 MG/DL (0.1-1.0)
[2021-11-05 11:48] LABS: CREATININE SERUM 0.96 MG/DL (0.60-1.30)
--- NOTE | 2021-11-05 11:59 | Diagnostic Imaging Report ---
PROCEDURE: CT head and CT cervical spine without contrast. TECHNIQUE: Multiple contiguous axial images were obtained through the brain and cervical spine without the use of intravenous contrast. Sagittal and coronal reformations through the cervical spine were then performed. Auto Exposure Controls were utilized during the CT exam to meet ALARA standards for radiation dose reduction. INDICATION: Seizure with head and cervical spine injury. FINDINGS: CT HEAD: Ventricles and sulci are mildly prominent given patient's age. In particular, there is prominent peripheral CSF space along the right convexity. This could indicate localized atrophy in this region. There is no evidence of hemorrhage. There is no abnormal mass effect or shift of midline structures. Calvarium is intact and the visualized paranasal sinuses are clear. IMPRESSION: Findings suggest mild volume loss which may be most pronounced in the right hemisphere. Otherwise, no acute intracranial abnormality is identified. CT CERVICAL SPINE: Multiple contiguous axial CT images of the cervical spine were obtained with sagittal and coronal reformatted images produced. FINDINGS: There is loss of normal cervical lordosis. Vertebral body heights and disc spaces are maintained. Prevertebral soft tissues are unremarkable, and there is no evidence of paraspinous hematoma. IMPRESSION: Loss of normal cervical lordosis which may be due to positioning or muscle spasm. There is, otherwise, no CT evidence of acute cervical spinal abnormality. Dictated by: Dictated on workstation # [id number]
[2021-11-05] MEDS ORDERED: inSUlin (REGULAR) HUMAN 1 UNIT/0.01 ML (CHARGE PER UNIT) IV SCH (12:00)
[2021-11-05 13:18] LABS: BILIRUBIN,URINE NEGATIVE (NEGATIVE); CLARITY,URINE CLEAR; COLOR,URINE YELLOW; GLUCOSE, URINE (UA) 3+ (NEGATIVE); KETONES,URINE 1+ (NEGATIVE); LEUKOCYTE ESTERASE ,URINE NEGATIVE (NEGATIVE); NITRITE,URINE NEGATIVE (NEGATIVE); PROTEIN,URINE NEGATIVE (NEGATIVE)
[2021-11-05 13:40] LABS: BACTERIA,URINE NEGATIVE /HPF
[2021-11-05 13:53] VITALS: BP 134/82
== END 2021-11-05 13:53 | disposition home or self-care (01) ==
LOC: EDUNIT# 11:09 → ER 11:11
DX: S00.83XA Contusion of other part of head, initial encounter (principal); G40.909 Epilepsy, unspecified, not intractable, without status epilepticus; E11.65 Type 2 diabetes mellitus with hyperglycemia; Z79.4 Long term (current) use of insulin; Z79.84 Long term (current) use of oral hypoglycemic drugs; W22.8XXA Striking against or struck by other objects, initial encounter
CPT/HCPCS: 36415; 70450; 72125; 80053; 81000; 82010; 85025; 96361; 96374